=== PATIENT | female | born 1980 | race Caucasian/White ===

== ENCOUNTER 2017-10-03 19:16 | Inpatient (IN) | payer OTHER ==
[2017-10-03] MEDS ORDERED: IBUPROFEN 600 MG TAB PO (20:00)
[2017-10-03] MEDS ORDERED: OXYTOCIN 30 UNITS/LR 500 ML IV ×2 (20:00)
[2017-10-03] MEDS ORDERED: METHYLERGONOVINE 0.2 MG INJ IM (20:00)
[2017-10-03] MEDS ORDERED: LIDOCAINE 1% (MPF) 30 ML INJ INJ (20:00)
[2017-10-03] MEDS ORDERED: CARBOPROST 250 MCG INJ IM (20:00)
[2017-10-03] MEDS ORDERED: BUTORPHANOL 2 MG INJ IV (20:00)
[2017-10-03] MEDS ORDERED: MISOPROSTOL 200 MCG TAB PR (20:00)
[2017-10-03 20:19] LABS: ADD MAN DIFF? NO
[2017-10-03 20:23] LABS: BASOPHIL # 0.1 10^3/ul (0.0-0.1); BASOPHILS % 0.4 % (0.0-2.0); EOSINOPHILS # 0.1 10^3/ul (0.0-0.5); EOSINOPHILS % 0.6 % (0.0-7.0); HEMATOCRIT 33.7 % (37.0-47.0); HEMOGLOBIN 10.9 g/dl (12.0-16.0); LYMPHOCYTES # 2.3 10^3/ul (0.8-2.9); MEAN CORPUSCULAR HEMOGLOBIN 28.7 pg (29.0-33.0); MEAN CORPUSCULAR HGB CONC 32.3 g/dl (32.0-37.0); MEAN CORPUSCULAR VOLUME 88.7 fl (82.0-101.0); MEAN PLATELET VOLUME 10.8 fl (7.4-10.4); MONOCYTE # 0.8 10^3/ul (0.3-0.9); MONOCYTES % 6.2 % (0.0-11.0); NEUTROPHIL # 10.1 10^3/ul (1.6-7.5); NEUTROPHILS % 74.3 % (39.0-77.0); PLATELET COUNT 233 10^3/UL (140-415); RED CELL DISTRIBUTION WIDTH 14.5 % (11.5-14.5)
[2017-10-03 20:23] LABS: WHITE BLOOD COUNT 13.6 10^3/ul (4.8-10.8)
[2017-10-03 20:37] LABS: INR 0.99; PROTIME 13.2 Sec (11.9-14.9)
[2017-10-03 20:38] LABS: PARTIAL THROMBOPLASTIN TIME 25.5 Sec (25.0-35.0)
[2017-10-03] MEDS: LACTATED RINGER'S 1,000 ML IV ×2 (20:44→21:35)
[2017-10-03] MEDS ORDERED: DIPHENHYDRAMINE 50 MG INJ IV (21:00)
[2017-10-03] MEDS ORDERED: NALOXONE (0.4 MG/ML) INJ IV (21:00)
[2017-10-03] MEDS ORDERED: ONDANSETRON 4 MG INJ IV (21:00)
[2017-10-03] MEDS ORDERED: EPHEDrine SULFATE 50 MG/5 ML SYG IV (21:00)
[2017-10-04] MEDS: FENTAnyl 2MCG/ML-ROPIV 0.2% 100 ML BAG EPI ×3 (02:33→14:21)
[2017-10-04] MEDS: FAMOTIDINE 20 MG INJ IV (02:50)
[2017-10-04] MEDS: LACTATED RINGER'S 1,000 ML IV ×2 (05:38→14:32)
[2017-10-04] MEDS: OXYTOCIN 30 UNITS/LR 500 ML IV ×3 (05:48→18:40)
[2017-10-04] MEDS: LACTATED RINGER'S 1,000 ML IV* (16:07)
[2017-10-04] MEDS ORDERED: METHYLERGONOVINE 0.2 MG INJ IM (16:30)
[2017-10-04] MEDS ORDERED: OXYCODONE/ASPIRIN (4.88/325) TAB PO (16:30)
[2017-10-04] MEDS ORDERED: MISOPROSTOL 200 MCG TAB PR (16:30)
[2017-10-04] MEDS ORDERED: CARBOPROST 250 MCG INJ IM (16:30)
[2017-10-04] MEDS ORDERED: OXYTOCIN 30 UNITS/LR 500 ML IV (16:30)
[2017-10-04] MEDS: IBUPROFEN 600 MG TAB PO ×2 (18:34→23:43)
[2017-10-04 22:19] LABS: RAPID PLASMA REAGIN NONREACTIVE (NR)
[2017-10-05] MEDS: LACTATED RINGER'S 1,000 ML IV* ×3 (04:41→12:00)
[2017-10-05] MEDS: IBUPROFEN 600 MG TAB PO ×4 (06:00→23:40)
[2017-10-05] MEDS: BUPIVACAINE 0.5% (SDV) 30 ML INJ (09:43)
[2017-10-05] MEDS ORDERED: HYDROmorphONE (0.2 MG/ML) 10ML SYG IV ×3 (10:40→11:00)
[2017-10-05] MEDS ORDERED: FENTAnyl 50 MCG/ML VIAL IV ×3 (11:00)
[2017-10-05] MEDS ORDERED: ONDANSETRON 4 MG INJ IV (11:00)
[2017-10-05] MEDS: HYDROmorphONE (0.2 MG/ML) 10ML SYG IV (11:11)
[2017-10-05] MEDS: OXYCODONE/ACETAMINOPHEN (5/325) TAB PO ×2 (12:50→20:46)
[2017-10-05] MEDS ORDERED: OXYCODONE/ACETAMINOPHEN (5/325) TAB PO (13:00)
[2017-10-06] MEDS: LACTATED RINGER'S 1,000 ML IV* (00:07)
[2017-10-06] MEDS: IBUPROFEN 600 MG TAB PO ×3 (05:43→17:40)
[2017-10-06] MEDS: DIPHTH/TET/ACEL PERTUSS (ADULT) 0.5 ML VIAL IM* (09:00)
[2017-10-06 14:06] LABS: ADD MAN DIFF? NO
[2017-10-06 14:08] LABS: WHITE BLOOD COUNT 8.5 10^3/ul (4.8-10.8)
[2017-10-06 14:08] LABS: BASOPHILS % 0.5 % (0.0-2.0); EOSINOPHILS # 0.2 10^3/ul (0.0-0.5); EOSINOPHILS % 2.1 % (0.0-7.0); HEMATOCRIT 28.5 % (37.0-47.0); LYMPHOCYTES # 1.9 10^3/ul (0.8-2.9); LYMPHOCYTES % 22.8 % (15.0-51.0); MEAN CORPUSCULAR HEMOGLOBIN 28.7 pg (29.0-33.0); MEAN CORPUSCULAR HGB CONC 31.6 g/dl (32.0-37.0); MEAN CORPUSCULAR VOLUME 90.8 fl (82.0-101.0); MEAN PLATELET VOLUME 10.5 fl (7.4-10.4); MONOCYTE # 0.5 10^3/ul (0.3-0.9); MONOCYTES % 6.4 % (0.0-11.0); NEUTROPHIL # 5.6 10^3/ul (1.6-7.5); NEUTROPHILS % 66.5 % (39.0-77.0); PLATELET COUNT 194 10^3/UL (140-415); RED BLOOD COUNT 3.14 10^6/ul (4.20-5.40); RED CELL DISTRIBUTION WIDTH 14.6 % (11.5-14.5)
== END 2017-10-06 20:50 | disposition home or self-care (01) | DRG 767 ==
LOC: OBT 19:16 → L-D 19:17 → OBT 19:56 → L-D 19:55 → PP1 10-04 17:16
PROVIDERS: Obstetrics & Gynecology
PROC: 0UL70ZZ Occlusion of Bilateral Fallopian Tubes, Open Approach (ICD-10-PCS; 2017-10-05 09:00)
PROC: 10E0XZZ Delivery of Products of Conception, External Approach (ICD-10-PCS; principal; 2017-10-05 09:05)
PROC: 0HQ9XZZ Repair Perineum Skin, External Approach (ICD-10-PCS; 2017-10-05 09:05)
DX: O70.0 First degree perineal laceration during delivery (principal); Z37.0 Single live birth; Z3A.37 37 weeks gestation of pregnancy; Z30.2 Encounter for sterilization
CPT/HCPCS: 62319; 85025; 85610; 85730; 86592; 86850; 86900; 86901